=== PATIENT | female | born 1985 | race Caucasian/White ===

== ENCOUNTER 2020-01-06 09:36 | Outpatient (CLI) | payer OTHER ==
[2020-01-06 19:13] LABS: SARS-CoV-2 MS2 Positive; SARS-CoV-2 N Gene Negative; SARS-CoV-2 S Gene Negative; SARS-CoV-2 by NAA Not Detected (NotDetected); SARS-CoV-2 orf1ab Negative
== END 2020-01-06 09:37 | disposition home or self-care (01) ==
LOC: LABBT 09:36
PROVIDERS: ATTEND Advanced Practice Midwife
DX: Z20.828 Contact with and (suspected) exposure to other viral communicable diseases (principal)
CPT/HCPCS: 87635; U0003

== ENCOUNTER 2020-01-09 05:30 | Inpatient (IN) | payer OTHER ==
[2020-01-09 07:20] VITALS: BMI 33.1
[2020-01-09] MEDS ORDERED: Methylergonovine 0.2 MG/ML VIAL IM PRN (07:31)
[2020-01-09] MEDS ORDERED: Promethazine HCl 25 MG/ML VIAL IM PRN ×2 (07:31→15:24)
[2020-01-09] MEDS ORDERED: hydrALAZINE 20 MG/ML VIAL SLOW IVP PRN (07:31)
[2020-01-09] MEDS ORDERED: HYDROcodone/Acetaminophen 5/325 mg Tablet PO PRN ×2 (07:31)
[2020-01-09] MEDS ORDERED: Misoprostol 200 MCG TAB PR PRN (07:31)
[2020-01-09] MEDS ORDERED: Ibuprofen 800 MG TAB PO PRN (07:31)
[2020-01-09] MEDS ORDERED: Butorphanol Tartrate 1 MG/ML VIAL SLOW IVP PRN (07:31)
[2020-01-09] MEDS ORDERED: Lidocaine 1% (PF) 30 ML VIAL SC PRN (07:31)
[2020-01-09] MEDS ORDERED: Ondansetron PF 4 MG/2 ML Vial IVP PRN ×2 (07:31→15:24)
--- NOTE | 2020-01-09 07:37 | PDOC.LDHP ---
Labor and Delivery H&P Chief complaint: scheduled induction HPI: Keo is a 34 y.o who arrives this morning for scheduled medically indicated IOL Current gestational age (weeks): 39 Due date: 01/26/20 Dating criteria: last menstrual period (verifed with 1st trimester US) Grav: 3 Para: 2 OB History Details: 2005 at 40wk. 7lbs 2014 40 weeks. 7lbs Current complications: other (Elevated AFP) Abnormal US findings: No Past Medical History: N/A Current medications: pre- vitamins, other (81 mg Aspirin) Previous surgical history: cholecystectomy, none (wisdom tooth extraction) Allergies/Adverse Reactions: Allergies Allergy/AdvReac Type Severity Reaction Status Date / Time No Known Allergies Allergy Verified 04/27/19 08:51 Social history: none - Physical Exam Vital signs reviewed and normal: yes General: NAD Lungs: nonlabored breathing Abdomen: gravid Extremeties: no edema - Vaginal Exam cm dilated: 0 Effacement: 0% Station: -3 - OB Labs Blood type: A RH: positive Antibody Screen: negative HIV: negative RPR: negative HEPSAg: negative 1 hour GCT: positive (136) 3 hour GTT: NML GBS: negative Urine drug screen: negative Rubella: immune Additional Labs: Elevated AFP 2.55MOM - Assessment L&D Assessment: medically indicated induction - Plan Plan: admit to L&D, cervical ripening, informed consent obtained, anesthesia consult for pain management
[2020-01-09] MEDS ORDERED: NS w/ Oxytocin 10 units 500 ML IV SCH (07:45)
[2020-01-09 07:52] LABS: Hemoglobin 12.2 g/dL (12.0-16.0); Mean Corpuscular HGB CONC 34.4 g/dL (32.0-36.0); Mean Corpuscular Hemoglobin 29.7 pg (27.0-31.0); Mean Corpuscular Volume 86.5 fL (78.0-98.0); Mean Platelet Volume 7.8 fL (7.4-10.4); Platelet Count 218 thou/uL (130-400); RBC Distribution Width 15.7 % (11.5-14.5)
[2020-01-09] MEDS: Misoprostol 100 MCG TAB VAG SCH (08:07)
[2020-01-09 08:28] LABS: Syphilis Antibody Nonreactive (Nonreactive); Syphilis Antibody Index 0.02 S/CO (<1.00 Non-Reactive)
[2020-01-09 08:29] LABS: HBSAg Index 0.17 S/CO (0-0.99); Hep B Surf Ag Non-Reactive S/CO (NonReactive)
[2020-01-09] MEDS ORDERED: Bupivacaine 0.25% HCL 30 ML VIAL ONE (13:06)
[2020-01-09] MEDS ORDERED: DISCONTINUE ALL PREVIOUS NARCOTICS FS SCH (14:30)
[2020-01-09] MEDS ORDERED: Bupivacaine 0.5% 20 ML, fentaNYL Citrate/PF 400 MCG in Sodium Chloride 0.9% 72 ML EPIDURAL SCH (14:30)
[2020-01-09] MEDS: Lactated Ringer's 1,000 ML IV SCH ×2 (15:23→19:55)
[2020-01-09] MEDS ORDERED: Acetaminophen 325 MG TAB PO PRN (15:24)
[2020-01-09] MEDS ORDERED: diphenhydrAMINE 50 MG/ML VIAL IVP PRN (15:24)
[2020-01-09] MEDS ORDERED: ePHEDrine 50 MG/ML VIAL SLOW IVP PRN (15:24)
[2020-01-09] MEDS ORDERED: Naloxone HCl 0.4 mg/ml Vial IVP PRN ×2 (15:24)
[2020-01-09] MEDS ORDERED: Lactated Ringer's 500 ML IV PRN (15:24)
[2020-01-09] MEDS ORDERED: Communication Order-Pharmacy FS SCH (15:30)
[2020-01-09] MEDS ORDERED: Fentanyl 4 mcg/Bupivacaine 0.1% Cassette 100 ML EPIDURAL SCH (15:30)
[2020-01-09] MEDS: NS / Oxytocin 40 units/1000ml 1,000 ML IV PRN ×2 (21:35→22:57)
--- NOTE | 2020-01-09 21:43 | PDOC.OPDEL ---
OB Operative/Delivery Note Delivery Dr/Surgeon: light Pre-Delivery Diagnosis: active labor, medically indicated induction Procedure/Post Delivery Dx: spontaneous vaginal delivery Weeks gestation: 39 Anesthesia: epidural - Findings A Sex: male - 1 min: 8 - 5 min: 9 - Additional Findings/Plan Placenta delivered: spontaneous Repaired Obstetrical Laceration: none Estimated blood loss: 200mL Post delivery plan: routine recovery
[2020-01-10] MEDS ORDERED: Milk Of Magnesia 30 ML UDCUP PO PRN (00:51)
[2020-01-10] MEDS ORDERED: Misoprostol 200 MCG TAB VAG PRN (00:51)
[2020-01-10] MEDS ORDERED: hydrALAZINE 20 MG/ML VIAL SLOW IVP PRN (00:51)
[2020-01-10] MEDS ORDERED: HYDROcodone/Acetaminophen 5/325 mg Tablet PO PRN ×2 (00:51)
[2020-01-10] MEDS ORDERED: Lanolin Ointment 7 GM TUBE TOP PRN (00:51)
[2020-01-10] MEDS ORDERED: NS / Oxytocin 40 units/1000ml 1,000 ML IV SCH (00:51)
[2020-01-10] MEDS ORDERED: Methylergonovine 0.2 MG/ML VIAL IM PRN (00:51)
[2020-01-10] MEDS ORDERED: Bisacodyl 10 MG SUPP PR PRN (00:51)
[2020-01-10] MEDS ORDERED: Benzocaine-Menthol 82.5 ML CAN TOP PRN (00:51)
[2020-01-10] MEDS ORDERED: Ondansetron PF 4 MG/2 ML Vial IVP PRN (00:51)
[2020-01-10] MEDS: Misoprostol 100 MCG TAB VAG SCH (00:58)
[2020-01-10] MEDS: Lactated Ringer's 1,000 ML IV SCH (01:48)
[2020-01-10] MEDS: Docusate Calcium (SURFAK) 240 MG CAP PO SCH ×2 (08:37→21:39)
[2020-01-10] MEDS: Prenatal Vitamin 1 TAB PO SCH (08:37)
[2020-01-10] MEDS: Ibuprofen 800 MG TAB PO SCH ×3 (08:37→21:40)
[2020-01-10] MEDS: Ferrous Sulfate 325 MG TAB PO SCH ×2 (08:38→17:36)
[2020-01-10] MEDS ORDERED: Adacel (T-DAP) 0.5 ML SYRINGE IM ONE (09:00)
[2020-01-11] MEDS: Ibuprofen 800 MG TAB PO SCH ×2 (05:03→14:36)
[2020-01-11 08:18] VITALS: BP 121/71; TEMP 98.7
[2020-01-11] MEDS: Prenatal Vitamin 1 TAB PO SCH (10:06)
[2020-01-11] MEDS: Docusate Calcium (SURFAK) 240 MG CAP PO SCH (10:06)
[2020-01-11] MEDS: Ferrous Sulfate 325 MG TAB PO SCH (10:07)
== END 2020-01-11 17:21 | disposition home or self-care (01) | DRG 807 ==
LOC: L&D 06:20 → 3SW 01-10 01:26
PROVIDERS: ADMIT Obstetrics & Gynecology; ATTEND Obstetrics & Gynecology
PROC: 10E0XZZ Delivery of Products of Conception, External Approach (ICD-10-PCS; principal; 2020-01-09)
PROC: 3E0P7VZ Introduction of Hormone into Female Reproductive, Via Natural or Artificial Opening (ICD-10-PCS; 2020-01-09)
PROC: 3E033VJ Introduction of Other Hormone into Peripheral Vein, Percutaneous Approach (ICD-10-PCS; 2020-01-09)
DX: O28.1 Abnormal biochemical finding on antenatal screening of mother (principal); Z37.0 Single live birth; Z3A.39 39 weeks gestation of pregnancy; Z20.828 Contact with and (suspected) exposure to other viral communicable diseases
CPT/HCPCS: 51702; 85027; 86780; 86850; 86900; 86901; 87340; J2590; J3010; J3490; S0020